=== PATIENT | male | born 1930 | race Caucasian/White ===

== ENCOUNTER 2018-07-15 01:26 | Observation (INO) ==
--- NOTE | 2018-07-15 02:24 | XR ---
EXAM DATE: 07/15/2018 2:19 AM EDT AGE/SEX: 88 years / Male INDICATIONS: . Chest discomfort, altered mental status CLINICAL DATA: This is the patient's initial encounter. Patient reports that signs and symptoms have been present for 1 day and indicates a pain score of 0/10. MEDICAL/SURGICAL HISTORY: None. None. COMPARISON: No prior exams available for comparison. FINDINGS: Frontal and lateral view of the chest demonstrates the lungs to be symmetrically aerated and clear. T he heart is normal in size. Moderate tortuosity of the descending thoracic aorta. Both hemidiaphragms well delineated. Cardiac pacer with 2 leads. Moderate degenerative changes in the lower thoracic spi ne with mild accentuation of the thoracic kyphosis. CONCLUSION: The lungs are clear. Electronically signed by: Arjun Curiel MD 07/15/2018 2:23 AM EDT
--- NOTE | 2018-07-15 02:26 | CT ---
EXAM DATE: 07/15/2018 2:22 AM EDT AGE/SEX: 88 years / Male INDICATIONS: Altered mental status. Contusion to forehead. CLINICAL DATA: This is the patient's initial encounter. Patient reports that signs and symptoms have been present for 1 day and indicates a pain score of 2/10. MEDICAL/SURGICAL HISTORY: Dementia. Pacemaker. RADIATION DOSE: 56.35 CTDI (mGy) COMPARISON: No prior exams available for comparison. TECHNIQUE: CT of the head without contrast. Using automated exposure control and adjustment of the mA and/or kV according to patient size, radiation dose was kept as low as reasonably achievable to ob tain optimal diagnostic quality images. DICOM format image data is available electronically for revi ew and comparison. FINDINGS: Cerebrum: The ventricles are prominent and there is mild prominence of the sulci characteristic of m oderate severity central cortical atrophy. There is also diffuse hypoattenuation in the supratentoria l white matter.. No evidence of midline shift, mass lesion, hemorrhage or acute infarction. No extr aaxial fluid collections are seen. Posterior Fossa: The cerebellum and brainstem are intact. The 4th ventricle is midline. The cerebe llopontine angle is unremarkable. Extracranial: The visualized portion of the orbits is intact. Skull: The calvaria is intact. No evidence of skull fracture. CONCLUSION: 1. No acute findings in the brain. 2. Moderate severity central and cortical atrophy and ischemic demyelination of the supratentorial w rica matter. . Electronically signed by: Arjun Curiel MD 07/15/2018 2:25 AM EDT
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
[2018-07-15 02:59] LABS: Baso % (Auto) 0.6 % (0.0-2.0); Eos # (Auto) 0.1 th/mm3 (0.0-0.4); Hematocrit 38.7 % (39.0-51.0); Hemoglobin 13.4 gm/dL (13.0-17.0); Lymph # (Auto) 1.8 th/mm3 (1.0-4.8); Lymph % (Auto) 22.4 % (9.0-44.0); Mean Corpuscular HGB Conc 34.7 % (32.0-36.0); Mean Corpuscular Hemoglobin 31.6 pg (27.0-34.0); Mean Platelet Volume 8.7 fL (7.0-11.0); Mono # (Auto) 0.7 th/mm3 (0.0-0.9); Mono % (Auto) 8.7 % (0.0-8.0); Neut # (Auto) 5.3 th/mm3 (1.8-7.7); Neut % (Auto) 67.3 % (16.0-70.0); Platelet Count 187 th/mm3 (150-450); Red Blood Count 4.26 mil/mm3 (4.50-5.90); Red Cell Distribution Width 13.9 % (11.6-17.2); White Blood Count 7.9 th/mm3 (4.0-11.0)
[2018-07-15 03:21] LABS: Alkaline Phosphatase 46 U/L (45-117); Thyroid Stimulating Hormone 0.785 uIU/mL (0.358-3.740); Total Protein 6.9 g/dL (6.4-8.2); Troponin I 0.06 ng/mL (0.02-0.05)
[2018-07-15 03:46] LABS: Alanine Aminotransferase 26 U/L (12-78); Albumin 3.8 g/dL (3.4-5.0); Anion Gap 8 meq/L (5-15); Aspartate Aminotransferase 52 U/L (15-37); Blood Urea Nitrogen 32 mg/dL (7-18); Calcium 8.8 mg/dL (8.5-10.1); Carbon Dioxide 25.8 meq/L (21.0-32.0); Chloride 107 meq/L (98-107); Glomerular Filtration Rate 35 mL/min (>89); Glucose,Random 90 mg/dL (74-106); Magnesium 2.7 mg/dL (1.5-2.5); Potassium 4.3 meq/L (3.5-5.1); Sodium 141 meq/L (136-145)
[2018-07-15] MEDS ORDERED: Acetaminophen 325 MG Tablet PO PRN (04:10)
[2018-07-15] MEDS ORDERED: Bisacodyl 10 MG Supp RECTAL PRN (04:10)
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
[2018-07-15] MEDS: Sod Chloride 0.9% Inj 1,000 ML IV.CONT SCH ×2 (06:15→18:10)
[2018-07-15] MEDS: Senna/Docusate Sodium 8.6/50 MG Tablet PO SCH ×2 (09:16→20:10)
[2018-07-15] MEDS ORDERED: Haloperidol Inj 5 MG/ML Ampul IV.PUSH ONE ×2 (16:00→23:53)
[2018-07-15] MEDS ORDERED: Sodium Chloride 0.9% 2 ML Flush PRN IV.FLUSH (16:01)
[2018-07-15 17:21] LABS: Bacteria,Urine Few /hpf; Bilirubin,Urine Negative (Negative); Clarity,Urine Hazy (Clear); Color,Urine Yellow (Yellw/Straw); Glucose,Urine (UA) Negative (Negative); Hyaline Casts,Urine 45 /lpf (0-3); Leukocyte Esterase,Urine Negative (Negative); Nitrite,Urine Negative (Negative); Specific Gravity,Urine 1.012 (1.002-1.035)
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
[2018-07-15] MEDS: QUEtiapine 25 MG Tablet PO SCH (20:08)
[2018-07-15] MEDS: Sodium Chloride 0.9% 2 ML Flush BID IV.FLUSH SCH (20:10)
[2018-07-16] MEDS: Sod Chloride 0.9% Inj 1,000 ML IV.CONT SCH ×2 (00:40→11:57)
[2018-07-16 05:10] LABS: Baso % (Auto) 0.5 % (0.0-2.0); Eos # (Auto) 0.1 th/mm3 (0.0-0.4); Eos % (Auto) 0.8 % (0.0-4.0); Hematocrit 37.6 % (39.0-51.0); Hemoglobin 12.9 gm/dL (13.0-17.0); Lymph # (Auto) 1.6 th/mm3 (1.0-4.8); Lymph % (Auto) 21.8 % (9.0-44.0); Mean Corpuscular HGB Conc 34.2 % (32.0-36.0); Mean Corpuscular Hemoglobin 31.1 pg (27.0-34.0); Mean Corpuscular Volume 90.8 fL (80.0-100.0); Mono # (Auto) 0.7 th/mm3 (0.0-0.9); Mono % (Auto) 9.4 % (0.0-8.0); Neut # (Auto) 4.9 th/mm3 (1.8-7.7); Neut % (Auto) 67.5 % (16.0-70.0); Platelet Count 182 th/mm3 (150-450); Red Blood Count 4.14 mil/mm3 (4.50-5.90); Red Cell Distribution Width 13.7 % (11.6-17.2); White Blood Count 7.3 th/mm3 (4.0-11.0)
[2018-07-16 05:35] LABS: Alanine Aminotransferase 27 U/L (12-78); Albumin 3.6 g/dL (3.4-5.0); Anion Gap 10 meq/L (5-15); Aspartate Aminotransferase 50 U/L (15-37); Blood Urea Nitrogen 26 mg/dL (7-18); Calcium 8.6 mg/dL (8.5-10.1); Carbon Dioxide 22.5 meq/L (21.0-32.0); Chloride 110 meq/L (98-107); Glomerular Filtration Rate 44 mL/min (>89); Glucose,Random 80 mg/dL (74-106); Potassium 4.1 meq/L (3.5-5.1); Sodium 142 meq/L (136-145)
[2018-07-16 05:37] LABS: Alkaline Phosphatase 49 U/L (45-117); Total Protein 6.9 g/dL (6.4-8.2)
[2018-07-16] MEDS: Senna/Docusate Sodium 8.6/50 MG Tablet PO SCH ×2 (08:36→21:18)
[2018-07-16] MEDS: Sodium Chloride 0.9% 2 ML Flush BID IV.FLUSH SCH ×2 (08:36→21:18)
[2018-07-16] MEDS: QUEtiapine 25 MG Tablet PO SCH ×2 (08:36→18:13)
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
[2018-07-16] MEDS: QUEtiapine 25 MG Tablet PO ONE ×2 (13:43→14:08)
[2018-07-17 07:50] VITALS: RESP 16
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
[2018-07-17] MEDS: QUEtiapine 25 MG Tablet PO SCH ×5 (09:42→18:00)
[2018-07-17] MEDS: Sodium Chloride 0.9% 2 ML Flush BID IV.FLUSH SCH ×2 (09:42→22:46)
[2018-07-17] MEDS: Senna/Docusate Sodium 8.6/50 MG Tablet PO SCH ×2 (09:42→22:46)
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
[2018-07-18 08:00] VITALS: BP 152/72; PULSE 72; TEMP 98.7; O2SAT 99
[2018-07-18] MEDS: QUEtiapine 25 MG Tablet PO SCH (08:25)
[2018-07-18] MEDS: Senna/Docusate Sodium 8.6/50 MG Tablet PO SCH (08:25)
[2018-07-18] MEDS: Sodium Chloride 0.9% 2 ML Flush BID IV.FLUSH SCH (08:26)
--- NOTE | 2018-07-18 14:40 | ECG ---
Date Performed: 07/15/2018 Time Performed: 02:36:07 PTAGE: 88 years EKG: ELECTRONIC ATRIAL PACEMAKER ELECTRONIC VENTRICULAR PACEMAKER ABNORMAL RHYTHM ECG NO PREVIOUS TRACING DOCTOR: Rad Estevez Interpretating Date/Time 07/18/2018 14:38:19
== END 2018-07-18 12:03 ==
LOC: NEPE 01:26 → NEDA 01:26 → NEPFCDU 04:52
PROVIDERS: ADMIT Hospitalist; ATTEND Hospitalist